=== PATIENT | male | born 2000 | race African-American/Black ===

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

== ENCOUNTER 2019-09-18 12:28 | Emergency (ER) | payer MEDICAID, SELFPAY ==
[2019-09-18 12:46] VITALS: BP 129/71; PULSE 92; RESP 16; O2SAT 98; BMI 21.1
--- NOTE | 2019-09-18 12:46 | HMH.EDGENADL ---
ED Disposition Clinical Impression: Urinary tract infection, STD exposure Disposition: Home, Self-Care Condition on Discharge: Good Instructions: Urinary Tract Infection, Urethritis Prescriptions: levoFLOXacin [Levaquin 500mg tab] 500 mg PO DAILY 7 Days tab Prescription Printed Referrals: PCP,No [Primary Care Provider] - - Critical Care Critical Care Time: No Attestation: On 09/18/19, the high probability of a clinically significant, sudden or life threatening deterioration of the following system(s) required my full and direct attention, intervention and personal management. The time I documented below is in addition to time spent performing reported procedures but includes the following listed in this critical care notation. Medical Decision Making - Medical Records Medical records reviewed: Yes: I reviewed the patient's medical records. - Robbie Inquiry Pt receiving controlled substance: No Vital Signs: 09/18/19 12:46 Pulse Rate [Radial] 92 H Respiratory Rate 16 Blood Pressure [Right Arm] 129/71 Blood Pressure Mean [Right Arm] 90 Blood Pressure Source [Right Arm] Automatic Cuff Blood Pressure Position [Right Arm] Sitting 02 Sat by Pulse Oximetry 98 Oxygen Delivery Method Room Air - Lab Data Lab results reviewed: Yes: I reviewed the patient's lab results. Lab Results 09/18/19 12:37: Urine Color Yellow, Urine Appearance Clear, Urine pH 6.0, Ur Specific [place] >= 1.030, Urine Protein Negative, Urine Glucose (UA) Negative, Urine Ketones Negative, Urine Blood Negative, Urine Nitrate Negative, Urine Bilirubin Negative, Urine Urobilinogen 1.0, Ur Leukocyte Esterase 1+ A, Urine RBC Occasional, Urine WBC 20-50, Amorphous Sediment 1+, Urine Bacteria 1+ Orders (Tests/Meds): ORDERS Category Date Time Status GC Culture Only Stat Micro 09/18/19 12:59 Ordered Urine Culture Stat Micro 09/18/19 12:37 Received General Adult HPI - General Stated complaint: possible STD Time Seen by Provider: 09/18/19 12:46 Mode of Arrival: Ambulatory Source of Information: Patient Limitations: No Limitations - History of Present Illness HPI narrative: -[place] male that presents with 2-day history of clear drainage from penis. Patient also reports dysuria. No fever no chills no abdominal pain. Symptoms are moderate intensity without palliating provoking measures. - Related Data Previous Rx's Medication Instructions Recorded levoFLOXacin [Levaquin 500mg 500 mg PO DAILY 7 Days tab 09/18/19 tab] Allergies Allergy/AdvReac Type Severity Reaction Status Date / Time No Known Allergies Allergy Verified 11/12/17 11:26 [facility] History - Hepatitis A Screen High risk sexual behaviors?: Yes Attestation statement:: This patient has been screened for Hepatitis A risk factors. I have reviewed the patient's past medical history: Yes Medical History: Denies:: Cancer, Diabetes Mellitus Type 1, Diabetes Mellitus Type 2, Hypertension, MRSA Other Surgeries: Yes: No Previous Surgery Amputation: No Fractures: No - Social History Smoking Status: Current every day smoker Tobacco Type: cigarettes # Packs/Day (cigarettes): 1 Alcohol Intake: current Alcohol Intake Frequency:: a few times a month Substance Use Type: marijuana Occupational Status: student Housing: house Household Members: family Family Hx:: Hypertension ROS Obtained: Yes All systems reviewed & no additional complaints Physical Exam - General General appearance: alert, in no apparent distress - Head Head exam: atraumatic, normocephalic - Eye Eye exam: Present: normal appearance, PERRL, EOMI - ENT ENT exam: Present: normal exam - Chest Chest inspection: Present: normal inspection, symmetric chest wall rise - Respiratory Respiratory exam: Present: normal lung sounds bilaterally - Cardiovascular Cardiovascular exam: Present: regular rate, normal rhythm, normal heart sounds - exam: Prese
[2019-09-18 12:49] LABS: Appearance,Urine CLEAR (Clear); Blood, Urine Negative (Negative); Color,Urine YELLOW (Yellow); Glucose,Urine (UA) Negative (Negative); Ketones,Urine Negative (Negative); Leukocyte Esterase,Urine 1+ (Negative); Microscopic, Urine URINE MICROSCOPIC (MICROSCOPIC); Nitrate,Urine Negative (Negative); Protein,Urine Negative (Negative); Specific Gravity, Urine >= 1.030 (1.005-1.030)
[2019-09-18 12:55] LABS: Bilirubin,Urine Negative (Negative)
[2019-09-18 13:01] LABS: Amorphous Sediment,Urine 1+ /lpf; Bacteria,Urine 1+ /lpf; RBC,Urine Occasional #/hpf (0-3); WBC,Urine 20-50 #/hpf (0-3)
--- NOTE | 2019-09-18 13:22 | PC.NURSE ---
Pt pacing around room and out by nurses desk asking if he is good to go. Pt informed that as soon as the MD finished up his paperwork he would be ready to go.
[2019-09-18 13:57] VITALS: BP 129/71; PULSE 92; RESP 16; TEMP 36.7; O2SAT 98
[2019-09-22 08:35] LABS: Neisseria gonorrhoeae, NAA Positive (Negative)
== END 2019-09-18 13:57 | disposition home or self-care (01) ==
PROVIDERS: Emergency Provider Emergency Medicine
DX: N30.00 Acute cystitis without hematuria (principal); Z20.2 Contact with and (suspected) exposure to infections with a predominantly sexual mode of transmission; F17.210 Nicotine dependence, cigarettes, uncomplicated; F12.10 Cannabis abuse, uncomplicated
CPT/HCPCS: 81001; 87086; 87491; 87591; 96372; 99283